=== PATIENT | male | born 1930 | race Caucasian/White ===

== ENCOUNTER 2017-01-26 17:46 | Emergency (ER) | payer OTHER ==
[2017-01-26 18:41] VITALS: BP 150/80; PULSE 70; TEMP 97.8; BMI 29.9
[2017-01-26] MEDS ORDERED: SODIUM CHLORIDE 1,000 ML IV STA ×2 (19:43→21:55)
[2017-01-26] MEDS ORDERED: ONDANSETRON 4 MG/2 ML VIAL ONE (20:05)
[2017-01-26] MEDS: ONDANSETRON 4 MG/2 ML VIAL IVPUSH ONE ×2 (20:06→20:45)
--- NOTE | 2017-01-26 20:22 | PDOC ---
*Physical Exam - Vital Signs Last Vital Signs Temp Pulse Resp BP Pulse Ox 97.8 F 70 17 150/80 95 01/26/17 18:32 01/26/17 18:32 01/26/17 18:32 01/26/17 18:32 01/26/17 18:32 ED Treatment Course - LABORATORY CBC & Chemistry Diagram: 01/26/17 20:02 01/26/17 20:02 - Medications Given in the ED: ED Medications Discontinued Medications Generic Name Dose Route Start Last Admin Trade Name Freq PRN Reason Stop Dose Admin Ondansetron HCl 4 mg 01/26/17 19:43 01/26/17 20:06 Zofran Injection IVPUSH 01/26/17 19:44 4 mg ONCE ONE Administration Medical Decision Making - Medical Decision Making 01/26/17 20:22 agree with care from TORREY Garnett
[2017-01-26 20:29] LABS: INR 1.08 (0.82-1.09); PROTHROMBIN TIME (PATIENT) 11.9 SEC (9.98-11.88)
[2017-01-26 20:31] LABS: URINE APPEARANCE SLCLOUDY; URINE BILIRUBIN NEGATIVE (NEGATIVE); URINE BLOOD NEGATIVE (NEGATIVE); URINE COLOR YELLOW; URINE GLUCOSE (UA) NEGATIVE (NEGATIVE); URINE KETONE TRACE (NEGATIVE); URINE LEUK ESTERASE NEGATIVE (NEGATIVE); URINE NITRITE NEGATIVE (NEGATIVE); URINE UROBILINOGEN NEGATIVE mg/dL (0.2-1.0)
[2017-01-26 20:34] LABS: BASOPHIL 0.4 % (0-2.0); EOSINOPHIL 0.6 % (0-4.5); MCH 31.1 pg (25.7-33.7); MCHC 33.4 g/dl (32.0-35.9); MEAN CELL VOLUME 93.1 fl (80-96); MEAN PLT VOLUME 9.4 fl (7.5-11.1); NEUTROPHILS 75.3 % (42.8-82.8); PLATELET COUNT 211 K/MM3 (134-434); RDW 13.6 % (11.9-15.9); WHITE BLOOD COUNT 7.6 K/mm3 (4.0-10.0)
[2017-01-26 20:45] LABS: ALBUMIN 3.6 g/dl (3.4-5.0); AMYLASE 57 U/L (25-115); ANION GAP 7 (8-16); BILIRUBIN,TOTAL 0.3 mg/dL (0.2-1.0); CO2 26 mmol/L (21-32); CPK 37 IU/L (39-308); CREATININE 1.1 mg/dL (0.7-1.3); GLUCOSE,RANDOM 131 mg/dL (74-106); SGOT/AST 10 U/L (15-37); SGPT/ALT 18 U/L (12-78); TOT PROT 7.6 g/dl (6.4-8.2)
--- NOTE | 2017-01-26 20:47 | PDOC ---
History of Present Illness - General Chief Complaint: Nausea/Vomiting Stated Complaint: WEAKNESS/DIZZINESS Time Seen by Provider: 01/26/17 19:28 History Source: Patient, Family Exam Limitations: No Limitations - History of Present Illness Initial Comments: 01/26/17 20:42 86yo Male patient w/ PmHx: HTN, HLD, Glaucoma presents to ED c/o dizziness, blurred vision, unsteady gait, headache with vomiting. Patient states symptoms began after lunch today. He states symptoms have resolved but daughter is concerned with patient ambulatory status. Patient denies CP, Abd pain, fever, cough, congestion, diff breathing, rash, or any other complaints at this time. PCP- Dr. Quinn. 01/26/17 20:50 Timing/Duration: reports: 4-6 hours Episode Description: See HPI Associated Symptoms: reports: trouble walking, vision changes. denies: loss of consciousness, muscle spasms, numbness in legs/feet, slurred speech, weakness Past History - Travel Traveled outside of the country in the last 30 days: No Close contact w/someone who was outside of country & ill: No - Past Medical History Allergies/Adverse Reactions: Allergies Allergy/AdvReac Type Severity Reaction Status Date / Time No Known Allergies Allergy Verified 01/26/17 18:28 Home Medications: Ambulatory Orders Amlodipine Bes/Olmesartan Med [Riana 5-20 Mg Tablet] 1 each PO DAILY tablet 01/16 Aspirin [ASA -] 81 mg PO DAILY 01/26/17 Bimatoprost [Lumigan] 1 drop IO DAILY 01/26/17 Metoprolol Succinate [Toprol Xl -] 12.5 mg PO DAILY 01/26/17 Ondansetron [Zofran Odt -] 4 mg SL Q6H PRN #20 od.tablet 01/26/17 Rosuvastatin [Crestor -] 10 mg PO DAILY 01/26/17 HTN: Yes Hypercholesterolemia: Yes - Immunization History Immunization Up to Date: Yes - Psycho/Social/Smoking Cessation Hx Suicidal Ideation: No Smoking History: Current every day smoker Have you smoked in the past 12 months: Yes Number of Cigarettes Smoked Daily: 20 Information on smoking cessation initiated: No Hx Alcohol Use: No Drug/Substance Use Hx: No Neuro Specific PMHX - Complaint Specific PMHX Glaucoma: No Herniated Disk: No Laminectomy: No Migraine: No Multiple Sclerosis: No Neuropathy: No TIA: No Review of Systems - Review of Systems Able to Perform ROS?: Yes Is the patient limited Citizen Of [place] proficient: No Constitutional: No: Chills, Fever HEENTM: Yes: Blurred Vision Cardiac (ROS): No: Chest Pain ABD/GI: Yes: Nausea, Vomiting. No: Constipated, Diarrhea, Difficulty Swallowing , Poor Appetite, Poor Fluid Intake, Rectal Bleeding, Abdominal cramping : No: Burning, Dysuria, Flank Pain, Hematuria Musculoskeletal: No: Back Pain Integumentary: No: Bruising, Erythema, Rash, Sweating Neurological: Yes: Headache, Unsteady Gait, Dizziness. No: Weakness, Ataxia All Other Systems: Reviewed and Negative *Physical Exam - Vital Signs Last Vital Signs Temp Pulse Resp BP Pulse Ox 97.8 F 70 17 150/80 95 01/26/17 18:32 01/26/17 18:32 01/26/17 18:32 01/26/17 18:32 01/26/17 18:32 - Physical Exam General Appearance: Yes: Nourished, Appropriately Dressed. No: Apparent Distress, Mild Distress, Moderate Distress, Severe Distress HEENT: positive: EOMI, TONYA, Normal ENT Inspection, Normal Voice, Symmetrical, TMs Normal, Pharynx Normal. negative: Pharyngeal Erythema, Tonsillar Exudate, Tonsillar Erythema, Nasal Congestion, Rhinorrhea, TM Bulging, TM Dull, TM Erythema Neck: positive: Trachea midline, Supple. negative: Lymphadenopathy (R), Lymphadenopathy (L), Tender lateral, Tender midline Respiratory/Chest: positive: Lungs Clear, Normal Breath Sounds. negative: Chest Tender, Respiratory Distress, Accessory Muscle Use, Labored Respiration, Rapid RR Cardiovascular: positive: Regular Rhythm, Regular Rate Gastrointestinal/Abdominal: positive: Normal Bowel Sounds, Soft Musculoskeletal: positive: Normal Inspection. negative: CVA Tenderness Extremity: positive: Normal Capillary Refill, Normal Inspection, Normal Range of Motion. 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 fishery II-XII NML intact, Fully Oriented, Alert, Normal Mood/ Affect, Normal Response, Motor Strength 5/5 ED Treatment Course - LABORATORY CBC & Chemistry Diagram: 01/26/17 20:02 01/26/17 20:02 - ADDITIONAL ORDERS Additional order review: Laboratory Results 01/26/17 20:02 INR 1.08 - RADIOLOGY Radiology Studies Ordered: Category Date Time Status HEAD CT WITHOUT CONTRAST [CT] Stat CT Scan 01/26/17 19:43 Ordered CHEST PA & LAT [RAD] Stat Radiology 01/26/17 19:43 Ordered - Medications Given in the ED: ED Medications Discontinued Medications Generic Name Dose Route Start Last Admin Trade Name Freq PRN Reason Stop Dose Admin Ondansetron HCl 4 mg 01/26/17 19:43 01/26/17 20:06 Zofran Injection IVPUSH 01/26/17 19:44 4 mg ONCE ONE Administration *DC/Admit/Observation/Transfer Diagnosis at time of Disposition: Dehydration - Discharge Dispostion Disposition: HOME Condition at time of disposition: Improved Admit: No - Prescriptions Prescriptions: Ondansetron [Zofran Odt -] 4 mg SL Q6H PRN #20 od.tablet PRN Reason: Nausea - Patient Instructions Printed Discharge Instructions: DI for Vomiting -- Adult, DI for Dehydration - - Adult Additional Instructions: Follow up with your doctor early next week. Call tomorrow to schedule appointment. Take medications as prescribed. Increase fluids, drink less coffee and stop smoking. Return if symptoms worsen or any concerns for further evaluation. Print Language: JAPANESE
[2017-01-26 20:53] LABS: ALK PHOS 68 U/L (45-117); THYROID STIMULATING HORMONE 1.42 uIU/ml (0.358-3.74); TROPONIN I < 0.02 ng/ml (0.00-0.05)
[2017-01-26 20:57] LABS: URINE PROTEIN 1+ (NEGATIVE)
[2017-01-26 21:10] LABS: URINE MUCUS RARE; URINE RBC 2 /hpf (0-3); URINE WBC 1 /hpf (3-5)
--- NOTE | 2017-01-27 12:26 | EKG ---
Test Reason : Blood Pressure : / mmHG Vent. Rate : 078 BPM Atrial Rate : 078 BPM P-R Int : 222 ms QRS Dur : 096 ms QT Int : 382 ms P-R-T Axes : 026 012 011 degrees QTc Int : 435 ms SINUS RHYTHM WITH 1ST DEGREE A-V BLOCK LOW VOLTAGE QRS POOR R WAVE PROGRESSION NO PREVIOUS ECGS AVAILABLE Confirmed by MD EVA, JINNY ([id number]) on 01/27/2017 12:26:39 PM Referred By: Confirmed By:JINNY VELASQUEZ MD
== END 2017-01-26 23:13 | disposition home or self-care (01) ==
LOC: JER 17:46
PROC: 3E0337Z Introduction of Electrolytic and Water Balance Substance into Peripheral Vein, Percutaneous Approach (ICD-10-PCS; principal; 2017-01-26)
DX: E86.0 Dehydration (principal); I10 Essential (primary) hypertension; E78.5 Hyperlipidemia, unspecified; H40.9 Unspecified glaucoma; F17.210 Nicotine dependence, cigarettes, uncomplicated
CPT/HCPCS: 36415; 70450-TC; 71010-TC; 80053; 81003; 81015; 82150; 84443; 84484; 85025; 85610; 85730; 93005; 93010; 99285-25

== ENCOUNTER 2018-02-27 07:36 | Day surgery (SDC) | payer OTHER ==
[2018-02-23 11:28] VITALS: BMI 28.6
[2018-02-27 08:28] VITALS: TEMP 97.8
[2018-02-27] MEDS ORDERED: BUPIVACAINE HCL/PF 0.5% (5MG/ML) 10 ML VIAL ONE (09:30)
[2018-02-27] MEDS ORDERED: TETRACAINE 0.5% OPHTH SOLN 2 ML BOTTLE ONE (09:30)
[2018-02-27] MEDS ORDERED: LIDOCAINE 1%/EPI 1:100000 (20 ML MULTI DOSE VIAL) ONE (09:30)
[2018-02-27] MEDS ORDERED: POVIDONE-IODINE 5% OPHTHALMIC PREP 30 ML SOLUTION ONE (09:30)
[2018-02-27] MEDS ORDERED: ERYTHROMYCIN 0.5% OPHTHALMIC OINTMENT 3.5 GM TUBE ONE (09:30)
[2018-02-27] MEDS ORDERED: PROPOFOL 20 ML ONE (09:35)
[2018-02-27] MEDS ORDERED: MIDAZOLAM HCL 2 MG/2 ML SINGLE DOSE VIAL ONE (09:36)
[2018-02-27 11:13] VITALS: BP 121/61; PULSE 66
--- NOTE | 2018-02-27 12:47 | OP ---
DATE OF OPERATION: 02/27/2018 PREOPERATIVE DIAGNOSIS: Entropion with keratitis, left lower lid and left eye. POSTOPERATIVE DIAGNOSIS: Entropion with keratitis, left lower lid and left eye. PROCEDURE: 1. Lateral tarsal strip, left lower lid. 2. Transconjunctival plication of retractors, left lower lid. 3. Orbicularis flap excision, left lower lid. SURGEON: Carloz Zavaleta MD ANESTHESIA: Local with sedation. COMPLICATIONS: None. ESTIMATED BLOOD LOSS: 3 or 4 mL DESCRIPTION OF OPERATION: Patient was brought to the operating room and placed on the operating room table. Vital signs monitored by Anesthesia. A timeout was performed in the room. A line was marked over the left lateral canthus. Tetracaine was placed in both eyes. Intravenous sedation was given, and a 50/50 mixture of 2% Xylocaine and 1:100,000 epinephrine and 0.5% Marcaine was injected subcutaneously in the left canthus down to periosteum, lateral third of the overlying lids and subconjunctivally along the inferior tarsus for a total of 3 mL. Patient was prepped and draped in usual sterile fashion, exposing both eyes. Lateral canthal incision was made over the left lateral canthus, carried down through the skin and subcutaneous tissues to the orbital rim. The inferior kelli and lateral canthal tendon was from orbital rim with sharp dissection and Goliad needle. Lid was overlapped at the orbital rim, marked with a sterile marking pen, and divided into an anterior and posterior lamella. The anterior lamella was excised. Posterior lamella was denuded of epithelium posteriorly and superiorly. Retractors were released inferiorly, and a tarsal strip was created. A double-arm 5-0 Prolene was passed through the tarsal strip and then passed through the internal surface of the orbital rim at the junction with the superior kelli and lateral canthal tendon, reinforced with two 6-0 Vicryl lasso sutures. The lid was everted over a Desmarres retractor by placing a 4-0 silk suture through the central lid margin after eversion. An incision was made with a Goliad needle in the inferior tarsus, through conjunctival retractors. Dissection was carried out along the postorbicularis space, retractors from the orbicularis and releasing the septum. The tarsus was then from pretarsal orbicularis with a Goliad needle. Small, partial-thickness strip of orbicularis was excised at the inferior tarsus, and a row of cautery was placed to create a fibrous adhesion and prevent preseptal override. The retractors were then reattached to the anterior-inferior tarsus with four 6-0 Vicryl buried sutures, reattaching the retractors and also closing the conjunctiva with the same suture. The lateral canthal angle was reformed with a 5-0 chromic through the contreras line of the upper and lower lid in buried fashion, and Prolene was then tied, attaching the tarsal strip to the orbital rim where it had previously been passed. Excess tarsal strip was excised, and it was sutured over the Prolene with a 5-0 chromic. The subcuticular tissues were closed with 5-0 chromic and the skin with interrupted 6-0 plain suture with plastic technique. Traction stitch was removed. Erythromycin ointment was placed in the eye and on the sutures of the left lateral canthus, and the patient was taken to the recovery room in stable condition. Throughout the case, antibiotic irrigation was used as well as cautery when needed. CARLOZ ZAVALETA M.D. [id number]
== END 2018-02-27 11:15 | disposition home or self-care (01) ==
LOC: FASU 07:36
PROVIDERS: ATTEND Ophthalmology
PROC: 08SR0ZZ Reposition Left Lower Eyelid, Open Approach (ICD-10-PCS; principal; 2018-02-27 10:01)
DX: H02.005 Unspecified entropion of left lower eyelid (principal); H16.9 Unspecified keratitis